=== PATIENT | male | born 1965 | race Caucasian/White ===

== ENCOUNTER 2023-10-13 21:11 | Emergency (ER) | payer OTHER, SELFPAY ==
[2023-10-13 21:14] VITALS: BP 135/81
--- NOTE | 2023-10-14 22:33 | ED.MUSCINJ ---
HPI-Injury
General
Chief Complaint: Musculo-Skeletal Complaint
Source: patient
Exam Limitations: none
Time Seen by Provider: 10/13/23 22:22
Nursing documentation reviewed up to this point in time: agreed with
History of Present Illness-Injury
Is this injury a work related problem?: No
Is pt an associate of [facility]?: No
Initial Injury comments:
Patient states he was attempting to squat and felt a sudden pain to left lateral knee He has had this issue in the past but not to this extent. States knee is increasingly more painful and swollen. Brought self to ED for eval.
Past History
Past History
ED Past Medical History: Other (exertional syncope)
ED Past Surgical History: None
Social History
Tobacco: Non-smoker
Living: with family
Review of Systems
Review of Systems
Allergies reviewed?: Yes
All Other Systems: ROS reviewed and negative except as documented in HPI and ROS
Constitutional: Reports no symptoms
Musculoskeletal: Reports joint pain (Pain to left lateral knee)
Skin: Reports no symptoms
Neurological: Reports no symptoms
Psychiatric: Reports no symptoms
Musculoskeletal Injury Exam
Musculoskeletal Injury Exam
Left Lateral Knee:
Pain with Movement?: Moderate
Tender to palpation?: Moderate
Soft tissue swelling?: Mild
External deformity and angulation?: None
Joint effusion?: None
Contusion?: None
Hematoma-local bleeding into tissue?: None
Strain- Sprain- Tear (Connective tissue injury)?: Moderate
Crepitus with movement?: No
Joint instability?: No
Malalignment/deformity?: No
Range of motion: Limited
Distal skin color and temperature: normal-warm & good color
Capillary Refill: normal
Normal distal neurovascular exam?: Yes
Peripheral Pulses: posterior tibial (left): 3+ and dorsalis pedis (left): 3+
Phy Exam
General Physical Exam
General Presentation: well appearing and no apparent distress
General age: appears stated age
General Skin: warm and dry
General Habitus: normal
General Mental: alert
Musculoskeletal Exam
Musculoskeletal Exam: neuro vasc intact
Skin Exam
Skin Exam: normal color, warm/dry and no rash
Psychiatric Exam
Psychiatric Exam: normal mood/affect
Injury Course
Orders/Labs/Results
Orders:
Orders
10/13/23 21:16
Knee, Left 4 or More Views [CR Knee - Left 4 Or More View*] Urgent
Comment:
Reason For Exam: pain and swelling
10/13/23 22:39
Knee Immobilizer Left-Treatmen ONCE
*Radiology
Radiology exam reviewed: radiology read reviewed
*Pulse Oximetry
Patient hypoxic: no
*Critical Care Note
Total Time (30-74mins, 75-104mins- exclusive of procedures): Not Applicable
ED Attending Note
-
Portions of this chart may have been created with voice recognition software.� Occasional wrong word or��sound alike� substitutions may have occurred due to the inherent limitations of voice recognition software.
Discharge Plan
Departure
Patient Disposition: Home (Routine Discharge)
Date of Disposition: 10/13/23
Time of Disposition: 22:40
Patient with high blood pressure during this ER visit?: No
Condition: Good
Covid-19: Not Applicable
Discharge Problem:
Knee sprain
Instructions: Knee Immobilizer (DC), Knee Sprain (DC), Using Cold for Pain
Prescriptions:
No Action
No Current Medications
0
Referrals:
Usman Latif MD [Active] - Keep scheduled appt
Harvey Mares, [Family Provider] -
Interventions
Interventions:
*Risk Screen - Suicide Last Done: 10/13/23 21:14
*General Assessment Last Done: 10/13/23 21:14
*Neglect/Abuse Screening Last Done: 10/13/23 21:14
ED- Fall Risk Assessment Last Done: 10/13/23 22:04
*ED COVID-19 Vaccine History Last Done: 10/13/23 21:14
*Nursing Disposition Last Done: 10/13/23 22:57
ED-Musculoskeletal Assessment Last Done: 10/13/23 22:04
Discharge Date and Time
Discharge Date/Time: 10/13/23 22:57
Print Language: [place]
== END 2023-10-13 22:57 | disposition home or self-care (01) ==
LOC: EMR 21:11
PROVIDERS: EMERGENCY PHYSICIAN Emergency Medicine; FAMILY PHYSICIAN Family Medicine
DX: S83.92XA Sprain of unspecified site of left knee, initial encounter (principal); X50.1XXA Overexertion from prolonged static or awkward postures, initial encounter; G47.30 Sleep apnea, unspecified
CPT/HCPCS: 99283; 29505; 73564

== ENCOUNTER → 2023-10-20 09:14 | Outpatient (REF) | payer OTHER, SELFPAY | LOC: MRI 09:14 | PROVIDERS: ATTENDING PHYSICIAN Specialist; FAMILY PHYSICIAN Family Medicine | DX: M25.562 Pain in left knee (principal) | CPT/HCPCS: 73721 ==

== ENCOUNTER 2023-11-25 06:28 | Day surgery (SDC) | payer OTHER, SELFPAY ==
[2023-11-21 14:01] VITALS: BMI 28.7
[2023-11-25] VITALS (10 sets, daily range): BP systolic 93–127; BP diastolic 51–89; BMI 28.7
[2023-11-25] MEDS: NORMOSOL-R/PLASMALYTE-A 1000 IV (09:39)
[2023-11-25] MEDS: CELEBREX 200 MG PO (09:39)
[2023-11-25] MEDS: TYLENOL 1000 MG PO (09:41)
== END 2023-11-25 14:36 | disposition home or self-care (01) ==
LOC: SDS 06:28
PROVIDERS: ATTENDING PHYSICIAN Specialist; FAMILY PHYSICIAN Family Medicine
DX: S83.282A Other tear of lateral meniscus, current injury, left knee, initial encounter (principal); X58.XXXA Exposure to other specified factors, initial encounter
CPT/HCPCS: 29881; 36415; 93005

== ENCOUNTER → 2024-08-21 06:45 | Outpatient (REF) | payer OTHER, SELFPAY | LOC: PAVMRI 06:45 | PROVIDERS: ATTENDING PHYSICIAN Orthopaedic Surgery; FAMILY PHYSICIAN Family Medicine | DX: S83.272A Complex tear of lateral meniscus, current injury, left knee, initial encounter (principal) | CPT/HCPCS: 73721 ==

== ENCOUNTER → 2024-09-01 14:08 | Outpatient (REF) | payer OTHER, SELFPAY | LOC: RAD 14:08 | PROVIDERS: ATTENDING PHYSICIAN Family Medicine | DX: M54.9 Dorsalgia, unspecified (principal) | CPT/HCPCS: 72052; 72072; 72110 ==

== ENCOUNTER → 2024-10-11 09:36 | Outpatient (REF) | payer OTHER, SELFPAY | LOC: EMG 09:36 | PROVIDERS: ATTENDING PHYSICIAN Student in an Organized Health Care Education/Training Program; FAMILY PHYSICIAN Family Medicine | DX: M25.60 Stiffness of unspecified joint, not elsewhere classified (principal); M62.81 Muscle weakness (generalized); R25.2 Cramp and spasm; R47.9 Unspecified speech disturbances; Z79.52 Long term (current) use of systemic steroids | CPT/HCPCS: 95886; 95909 ==

== ENCOUNTER → 2024-10-22 07:57 | Outpatient (REF) | payer OTHER, SELFPAY | LOC: HWRAD 07:57 | PROVIDERS: ATTENDING PHYSICIAN Student in an Organized Health Care Education/Training Program; FAMILY PHYSICIAN Family Medicine | DX: D58.2 Other hemoglobinopathies (principal); M25.50 Pain in unspecified joint; M25.60 Stiffness of unspecified joint, not elsewhere classified; M54.9 Dorsalgia, unspecified; M62.81 Muscle weakness (generalized); M79.10 Myalgia, unspecified site; R25.2 Cramp and spasm; R47.9 Unspecified speech disturbances; R71.8 Other abnormality of red blood cells; R74.8 Abnormal levels of other serum enzymes; Z79.52 Long term (current) use of systemic steroids | CPT/HCPCS: 70450 ==

== ENCOUNTER → 2024-11-01 18:29 | Outpatient (REF) | payer OTHER, SELFPAY | LOC: MRI 3T 18:29 | PROVIDERS: ATTENDING PHYSICIAN Family Medicine | DX: M54.59 Other low back pain (principal) | CPT/HCPCS: 72148 ==

== ENCOUNTER → 2025-01-21 08:10 | Outpatient (REF) | payer OTHER, SELFPAY | LOC: DHSLP 08:10 | PROVIDERS: ATTENDING PHYSICIAN Internal Medicine; FAMILY PHYSICIAN Family Medicine | DX: G47.33 Obstructive sleep apnea (adult) (pediatric) (principal) | CPT/HCPCS: 95800 ==